=== PATIENT | male | born 1955 | race Caucasian/White ===

== ENCOUNTER 2018-03-28 17:28 | Emergency (ER) | payer OTHER, SELFPAY ==
[2018-03-28 17:34] VITALS: BP 144/77; PULSE 85; RESP 20; TEMP 37.8; O2SAT 97; BMI 30.5
--- NOTE | 2018-03-28 17:58 | PC.NURSE ---
PT C/O MID BACK PAIN SINCE LAST NIGHT AT APPROX 0030. STATES INCREASES WITH SITTING/LYING DOWN, DECREASES WITH MOVEMENT. ALSO C/O ACHING JOINTS AND HEAD CONGESTION.
--- NOTE | 2018-03-28 18:13 | ED_ITS ---
HPI - Back Pain/Injury <Yaz Murguia PA-C - Last Filed: 03/28/18 22:20> General Chief Complaint: Back Pain/Injury Stated Complaint: BACK PAIN Time Seen by Provider: 03/28/18 18:02 Source: patient Mode of arrival: ambulatory Limitations: no limitations History of Present Illness HPI Narrative: This 62-year-old male was feeling normal until yesterday when he had onset of feeling chilled and feverish with generalized joint pains and back pain. He states that he has continued to feel chilled but has not had known fever at home. He woke with more intense back pain today, which he states is focus mainly throughout his low back, not in 1 area. He states that can actually feel a little bit better to stretch the back out except for moving into a lying position. He does not have any pain in the upper back or neck. He states that he also has persistent joint pain in his hands and knees most, but also noticing in his elbows a little bit. He denies any history of recent illness or exposures, but states he has had some cough and his throat is a little bit hoarse today. He states he has a very slight headache, which he thinks could be from coughing, denies vision change, jaw claudication, or n/v. He denies chest pain, wheeze, or dyspnea. He denies any new abdominal pain or radiation of the back pain. He denies any exacerbating features for the back pain and tried ibuprofen at home without relief as well. He denies any bowel or bladder dysfunction or changes, denies any weakness or paresthesia in the extremities or other new complaints. Related Data Previous Rx's Medication Instructions Recorded cyclobenzaprine 10 mg PO Q8H PRN #14 tab 03/28/18 methylprednisolone [Medrol (Chau)] See Label Instructions PO PER PKG 03/28/18 DIR #21 each oxycodone-acetaminophen [Percocet] 1 tab PO Q4H PRN #10 tab 03/28/18 Allergies Allergy/AdvReac Type Severity Reaction Status Date / Time No Known Drug Allergies Allergy Verified 03/28/18 17:39 Review of Systems <Yaz Murguia PA-C - Last Filed: 03/28/18 22:20> Review of Systems All systems reviewed & are unremarkable except as noted in HPI and below Exam <JEFFREY Alanis Last Filed: 03/28/18 22:20> Narrative Exam Narrative: GENERAL APPEARANCE: Patient sitting comfortably in chair, in no distress. HEENT: PERRL, EOMI, normal oropharynx, no sinus TTP NECK: Supple LUNGS: Clear to auscultation bilaterally, no cough on exam. HEART: Rate and rhythm regular without murmur, normal S1 and S2, no S3 or S4. ABDOMEN: Soft, NT, ND, + BS x 4 quadrants NEUROLOGIC: Alert and oriented, normal speech, gait and coordination. DTRs 2+ throughout MUSCULOSKELETAL: Full Csp AROM without point tenderness. No point tenderness over the thoracic spine. Moderate tenderness throughout the lumbar spine and paraspinal lumbar musculature. He has full ROM of the trunk without tenderness but will not attempt to move to supine position secondary to tenderness. He has moderate tenderness over both ankles. There is no effusion or range of motion deficit. No tenderness over the knees or hips. He has full range of motion throughout the upper extremities, +metacarpal squeeze test,, somewhat tender over both wrists and elbows. No tenderness over the shoulders. No joint effusion noted DERM: No exanthem EXTREMITIES: No edema, no calf tenderness Initial Vital Signs Initial Vital Signs: Vital Signs Temperature 100.1 F H 03/28/18 17:34 Pulse Rate 85 03/28/18 17:34 Respiratory Rate 20 03/28/18 17:34 Blood Pressure 144/77 H 03/28/18 17:34 Pulse Oximetry 97 03/28/18 17:34 <Rudy Trotter DO - Last Filed: 03/28/18 22:22> Initial Vital Signs Initial Vital Signs: Vital Signs Temperature 100.1 F H 03/28/18 17:34 Pulse Rate 85 03/28/18 17:34 Respiratory Rate 20 03/28/18 17:34 Blood Pressure 144/77 H 03/28/18 17:34 Pulse Oximetry 97 03/28/18 17:34 Course <Yaz Murguia PA-C - Last Filed: 03/28/18 22:20> Hospital Course: I reviewed patient's findings with Dr. Trotter who agreed with workup and plan. Source of patient's low back and joint pain is not clear, occult infection or abcess is unlikely from his workup. Patient was resting comfortably at the time of discharge. We decided to try a course of steroids given the polyarthralgia. He was also given some endocet and muscle relaxants, which he has used for short times in the past and helpful. Advised not to drive. He agreed to return immediately if acutely worsening or changed sx over the weekend , otherwise will f/u with PCP early next week to assess progress on steroids. Orders Ordered: ED Orders 03/28/18 18:25 XR chest 2V Stat XR lumbar spine 2-3V Stat 03/28/18 18:53 C-Reactive Protein Quant Stat Complete Blood Count AUTO DIFF Stat Comprehensive Metabolic Panel Stat Erythrocyte Sedimentation Rate Stat Lactate (Lactic Acid) Stat 03/28/18 19:03 MR lumbar spine w con Stat 03/28/18 19:37 CT lumbar spine w con Stat Discontinued Medications Cyclobenzaprine HCl (Flexeril 10 Mg Prepack) 1 bottle MISC SEEINSTR ONE Stop: 03/28/18 21:53 Last Admin: 03/28/18 22:06 Dose: 1 bottle Hydromorphone HCl (Dilaudid) 1 mg IV NOW ONE Stop: 03/28/18 20:35 Last Admin: 03/28/18 20:39 Dose: 1 mg Sodium Chloride (Normal Saline 0.9%) 500 mls @ 1,000 mls/hr IV BOLUS ONE Stop: 03/28/18 18:53 Last Infusion: 03/28/18 20:43 Dose: 0 mls/hr Admin: 03/28/18 19:42 Dose: 1,000 mls/hr Oxycodone/Acetaminophen (Percocet 5/325) 1 tab PO NOW ONE Stop: 03/28/18 18:25 Last Admin: 03/28/18 18:58 Dose: 1 tab Oxycodone/Acetaminophen (Endocet 5/325 Prepack) 1 bottle MISC SEEINSTR ONE Stop: 03/28/18 21:53 Last Admin: 03/28/18 22:06 Dose: 1 bottle Vital Signs - 8 hr 03/28/18 17:34 03/28/18 18:18 03/28/18 21:16 Temperature 100.1 F H 98.3 F Pulse Rate 85 69 Respiratory Rate 20 16 Blood Pressure 144/77 H Blood Pressure [Left Arm] 153/75 H Pulse Oximetry 97 100 03/28/18 22:16 Temperature Pulse Rate 66 Respiratory Rate 18 Blood Pressure Blood Pressure [Left Arm] 134/79 H Pulse Oximetry 96 <Rudy Trotter DO - Last Filed: 03/28/18 22:22> Orders Ordered: ED Orders 03/28/18 18:25 XR chest 2V Stat XR lumbar spine 2-3V Stat 03/28/18 18:53 C-Reactive Protein Quant Stat Complete Blood Count AUTO DIFF Stat Comprehensive Metabolic Panel Stat Erythrocyte Sedimentation Rate Stat Lactate (Lactic Acid) Stat 03/28/18 19:03 MR lumbar spine w con Stat 03/28/18 19:37 CT lumbar spine w con Stat Discontinued Medications Cyclobenzaprine HCl (Flexeril 10 Mg Prepack) 1 bottle MISC SEEINSTR ONE Stop: 03/28/18 21:53 Last Admin: 03/28/18 22:06 Dose: 1 bottle Hydromorphone HCl (Dilaudid) 1 mg IV NOW ONE Stop: 03/28/18 20:35 Last Admin: 03/28/18 20:39 Dose: 1 mg Sodium Chloride (Normal Saline 0.9%) 500 mls @ 1,000 mls/hr IV BOLUS ONE Stop: 03/28/18 18:53 Last Infusion: 03/28/18 20:43 Dose: 0 mls/hr Admin: 03/28/18 19:42 Dose: 1,000 mls/hr Oxycodone/Acetaminophen (Percocet 5/325) 1 tab PO NOW ONE Stop: 03/28/18 18:25 Last Admin: 03/28/18 18:58 Dose: 1 tab Oxycodone/Acetaminophen (Endocet 5/325 Prepack) 1 bottle MISC SEEINSTR ONE Stop: 03/28/18 21:53 Last Admin: 03/28/18 22:06 Dose: 1 bottle Vital Signs - 8 hr 03/28/18 17:34 03/28/18 18:18 03/28/18 21:16 Temperature 100.1 F H 98.3 F Pulse Rate 85 69 Respiratory Rate 20 16 Blood Pressure 144/77 H Blood Pressure [Left Arm] 153/75 H Pulse Oximetry 97 100 03/28/18 22:16 Temperature Pulse Rate 66 Respiratory Rate 18 Blood Pressure Blood Pressure [Left Arm] 134/79 H Pulse Oximetry 96 MDM - Back Pain/Injury <Yaz Murguia PA-C - Last Filed: 03/28/18 22:20> Lab Data Attestation: I reviewed the patient's lab results. Result diagrams: 03/28/18 18:53 03/28/18 18:53 Lab Results 03/28/18 03/28/18 03/28/18 Range/Units 18:53 18:53 18:53 WBC (4.5-11.0) X10^3/uL RBC (4.5-5.9) X10^6/uL Hgb (13.5-17.5) g/dL Hct (41-53) % MCV (80-100) fL MCH (26-34) PG MCHC (30-36) % RDW (11.6-14.8) % Plt Count (150-400) X10^3/uL Neut % (Auto) (50-75) % Lymph % (Auto) (25-40) % Sandoval % (Auto) (3-14) % Eos % (Auto) (2-4) % Baso % (Auto) (0-2) % Neut # (Auto) (6102-2039) /uL ESR 20 H (0-15) MM/HR Sodium 134 L (137-145) mmol/L Potassium 4.2 (3.4-5.1) mmol/L Chloride 99.0 (98-107) mmol/L Carbon Dioxide 24.0 (22-32) mmol/L BUN 18.0 (9-20) mg/dL Creatinine 0.70 (0.66-1.25) mg/dL Estimated GFR > 60.0 (>60) mL/min BUN/Creatinine Ratio 25.7 H (6-22) Glucose 108 (80-110) mg/dL Lactate 0.7 (0.7-2.1) mmol/L Calcium 8.9 (8.4-10.2) mg/dL Total Bilirubin 1.0 (0.2-1.3) mg/dL AST 45 (17-59) IU/L ALT 65 (21-72) IU/L Alkaline Phosphatase 69 (38-126) U/L C-Reactive Protein 0.7 (<1.0) mg/dL Total Protein 8.1 (6.3-8.2) g/dL Albumin 4.3 (3.5-5.0) g/dL Globulin 3.8 (1.7-4.1) g/dL Albumin/Globulin Ratio 1.1 (1.0-2.8) // Range/Units 18:53 WBC 8.1 (4.5-11.0) X10^3/uL RBC 3.99 L (4.5-5.9) X10^6/uL Hgb 14.0 (13.5-17.5) g/dL Hct 39.3 L (41-53) % MCV 98.5 (80-100) fL MCH 35.1 H (26-34) PG MCHC 35.6 (30-36) % RDW 14.0 (11.6-14.8) % Plt Count 125 L (150-400) X10^3/uL Neut % (Auto) 66.4 (50-75) % Lymph % (Auto) 25.9 (25-40) % Sandoval % (Auto) 6.7 (3-14) % Eos % (Auto) 0.3 L (2-4) % Baso % (Auto) 0.7 (0-2) % Neut # (Auto) 5400 (4521-3301) /uL ESR (0-15) MM/HR Sodium (137-145) mmol/L Potassium (3.4-5.1) mmol/L Chloride (98-107) mmol/L Carbon Dioxide (22-32) mmol/L BUN (9-20) mg/dL Creatinine (0.66-1.25) mg/dL Estimated GFR (>60) mL/min BUN/Creatinine Ratio (6-22) Glucose (80-110) mg/dL Lactate (0.7-2.1) mmol/L Calcium (8.4-10.2) mg/dL Total Bilirubin (0.2-1.3) mg/dL AST (17-59) IU/L ALT (21-72) IU/L Alkaline Phosphatase (38-126) U/L C-Reactive Protein (<1.0) mg/dL Total Protein (6.3-8.2) g/dL Albumin (3.5-5.0) g/dL Globulin (1.7-4.1) g/dL Albumin/Globulin Ratio (1.0-2.8) Imaging Data spine: Radiologist's impression: View Report History [address] [address] XRay Report Signed Patient: SOCORRO ESTRADA MR#: [id number] : 1955 Acct:[id number] Age/Sex: 62 / M Date of Service: 03/28/18 Loc: ED Accession Number: [id number] Procedure: XR lumbar spine 2-3V Ordering Provider: Yaz Murguia P.A-C PROCEDURE: XR LUMBAR SPINE 2-3V INDICATIONS: pain TECHNIQUE: 3 views of the lumbar spine were acquired. COMPARISON: None. FINDINGS: Bones: 5 [id number] vertebrae are present. There is normal bony alignment. No vertebral body compression fractures. No suspicious bony lesions. Soft tissues: Overlying bowel gas pattern is normal. No suspicious soft tissue calcifications. IMPRESSION: Mild to moderate degenerative disc disease and facet osteoarthritis as seen at L4-5 and L5-S1, without subluxation or evidence of compression fracture. Dictated by: Jonathan Castro M.D. on 03/28/2018 at 18:58 Approved by: Jonathan Castro M.D. on 03/28/2018 at 18:58 Chest x-ray: Radiologist's impression: View Report History [address] [address] XRay Report Signed Patient: SOCORRO ESTRADA MR#: [id number] : 1955 Acct:[id number] Age/Sex: 62 / M Date of Service: 03/28/18 Loc: ED Accession Number: [id number] Procedure: XR chest 2V Ordering Provider: Yaz Murguia P.A-C PROCEDURE: XR CHEST 2V INDICATIONS: cough, thoracic pain TECHNIQUE: 2 views of the chest were acquired. COMPARISON: None. FINDINGS: Surgical changes and devices: None. Lungs and pleura: No pleural effusions or pneumothorax. Lungs are clear. Mediastinum: Mediastinal contours are normal. Heart size is normal. Bones and chest wall: No suspicious bony abnormalities. Soft tissues appear unremarkable. IMPRESSION: Normal for age, source of current symptoms is not seen. Dictated by: Jonathan Castro M.D. on 03/28/2018 at 18:58 Approved by: Jonathan Castro M.D. on 03/28/2018 at 18:[address]: Radiologist's impression: View Report History [address] [address] [address] Scan Report Signed Patient: SOCORRO ESTRADA MR#: [id number] : 1955 Acct:[id number] Age/Sex: 62 / M Date of Service: 03/28/18 Loc: ED Accession Number: [id number] Procedure: CT lumbar spine w con Ordering Provider: Yaz Murguia P.A-C PROCEDURE: CT LUMBAR SPINE W CON INDICATIONS: pain, r/o infection/abcess TECHNIQUE: After the administration of intravenous Isovue contrast, 3 mm thick sections acquired through the levels of interest. Sagittal and coronal reformats were then constructed. For radiation dose reduction, the following was used: automated exposure control. COMPARISON: None. FINDINGS: Image quality: Excellent. Bones: No sign of acute trauma or discitis/osteomyelitis based on CT criteria. Soft tissues: No inflammation involving the paravertebral soft tissues. IMPRESSION: No evidence of discitis or osteomyelitis found, and no paravertebral inflammation is seen. Reportedly MR scanning has been scheduled also. Dictated by: Jonathan Castro M.D. on 03/28/2018 at 21:28 Approved by: Jonathan Castro M.D. on 03/28/2018 at 21:31 <Rudy Trotter DO - Last Filed: 03/28/18 22:22> Lab Data Lab Results 03/28/18 03/28/18 03/28/18 Range/Units 18:53 18:53 18:53 WBC (4.5-11.0) X10^3/uL RBC (4.5-5.9) X10^6/uL Hgb (13.5-17.5) g/dL Hct (41-53) % MCV (80-100) fL MCH (26-34) PG MCHC (30-36) % RDW (11.6-14.8) % Plt Count (150-400) X10^3/uL Neut % (Auto) (50-75) % Lymph % (Auto) (25-40) % Sandoval % (Auto) (3-14) % Eos % (Auto) (2-4) % Baso % (Auto) (0-2) % Neut # (Auto) (9027-4588) /uL ESR 20 H (0-15) MM/HR Sodium 134 L (137-145) mmol/L Potassium 4.2 (3.4-5.1) mmol/L Chloride 99.0 (98-107) mmol/L Carbon Dioxide 24.0 (22-32) mmol/L BUN 18.0 (9-20) mg/dL Creatinine 0.70 (0.66-1.25) mg/dL Estimated GFR > 60.0 (>60) mL/min BUN/Creatinine Ratio 25.7 H (6-22) Glucose 108 (80-110) mg/dL Lactate 0.7 (0.7-2.1) mmol/L Calcium 8.9 (8.4-10.2) mg/dL Total Bilirubin 1.0 (0.2-1.3) mg/dL AST 45 (17-59) IU/L ALT 65 (21-72) IU/L Alkaline Phosphatase 69 (38-126) U/L C-Reactive Protein 0.7 (<1.0) mg/dL Total Protein 8.1 (6.3-8.2) g/dL Albumin 4.3 (3.5-5.0) g/dL Globulin 3.8 (1.7-4.1) g/dL Albumin/Globulin Ratio 1.1 (1.0-2.8) 05/25/18 Range/Units 18:53 WBC 8.1 (4.5-11.0) X10^3/uL RBC 3.99 L (4.5-5.9) X10^6/uL Hgb 14.0 (13.5-17.5) g/dL Hct 39.3 L (41-53) % MCV 98.5 (80-100) fL MCH 35.1 H (26-34) PG MCHC 35.6 (30-36) % RDW 14.0 (11.6-14.8) % Plt Count 125 L (150-400) X10^3/uL Neut % (Auto) 66.4 (50-75) % Lymph % (Auto) 25.9 (25-40) % Sandoval % (Auto) 6.7 (3-14) % Eos % (Auto) 0.3 L (2-4) % Baso % (Auto) 0.7 (0-2) % Neut # (Auto) 5400 (9860-1628) /uL ESR (0-15) MM/HR Sodium (137-145) mmol/L Potassium (3.4-5.1) mmol/L Chloride (98-107) mmol/L Carbon Dioxide (22-32) mmol/L BUN (9-20) mg/dL Creatinine (0.66-1.25) mg/dL Estimated GFR (>60) mL/min BUN/Creatinine Ratio (6-22) Glucose (80-110) mg/dL Lactate (0.7-2.1) mmol/L Calcium (8.4-10.2) mg/dL Total Bilirubin (0.2-1.3) mg/dL AST (17-59) IU/L ALT (21-72) IU/L Alkaline Phosphatase (38-126) U/L C-Reactive Protein (<1.0) mg/dL Total Protein (6.3-8.2) g/dL Albumin (3.5-5.0) g/dL Globulin (1.7-4.1) g/dL Albumin/Globulin Ratio (1.0-2.8) Discharge Plan Departure Patient Disposition: Home, Self-Care Clinical Impression: Low back pain, Polyarthralgia Instructions: DI for Low Back Pain, DI for Arthralgia Activity Restrictions/Additional Instructions: You should return as we talked about if any acutely changed or worsening symptoms. As we discussed, the exact source of your back pain and joint pains is not clear today. You may have some type of inflammatory arthritis that is affecting your back and multiple joints, so it is reasonable to try the steroids that we talked about. You can pick these up at the pharmacy in the morning. I have given you a prescription for some pain medication and muscle relaxants to use as well if you need them since they have helped to in the past. Do not drive while taking these as they may make you sleepy. Be sure to follow up with your PCP 1st of next week to review your progress as you may need further workup and testing. It will be helpful for him to reassess you after you have been on the steroids for a few days to determine whether they are helpful Prescriptions: New methylprednisolone [Medrol (Chau)] 4 mg tablets,dose pack See Label Instructions PO PER PKG DIR Qty: 21 RF: 0 cyclobenzaprine 10 mg tablet 10 mg PO Q8H PRN (Reason: muscle spasm) Qty: 14 RF: 0 oxycodone-acetaminophen [Percocet] 5-325 mg tablet 1 tab PO Q4H PRN (Reason: pain) Qty: 10 RF: 0 Referrals: Sami Steward MD [Non-Staff] - <Rudy Trotter DO - Last Filed: 03/28/18 22:22> Cosign ED Attending Kirstyature Attestation: I was immediately available in the department for consultation. Documentation has been reviewed. I agree with assessment and plan.
[2018-03-28 18:18] VITALS: TEMP 36.8
--- NOTE | 2018-03-28 18:25 | DI.RAD.S_ITS ---
PROCEDURE: XR CHEST 2V INDICATIONS: cough, thoracic pain TECHNIQUE: 2 views of the chest were acquired. COMPARISON: None. FINDINGS: Surgical changes and devices: None. Lungs and pleura: No pleural effusions or pneumothorax. Lungs are clear. Mediastinum: Mediastinal contours are normal. Heart size is normal. Bones and chest wall: No suspicious bony abnormalities. Soft tissues appear unremarkable. IMPRESSION: Normal for age, source of current symptoms is not seen. Dictated by: Jonathan Castro M.D. on 03/28/2018 at 18:58 Approved by: Jonathan Castro M.D. on 03/28/2018 at 18:59
--- NOTE | 2018-03-28 18:25 | DI.RAD.S_ITS ---
PROCEDURE: XR LUMBAR SPINE 2-3V INDICATIONS: pain TECHNIQUE: 3 views of the lumbar spine were acquired. COMPARISON: None. FINDINGS: Bones: 5 [id number] vertebrae are present. There is normal bony alignment. No vertebral body compression fractures. No suspicious bony lesions. Soft tissues: Overlying bowel gas pattern is normal. No suspicious soft tissue calcifications. IMPRESSION: Mild to moderate degenerative disc disease and facet osteoarthritis as seen at L4-5 and L5-S1, without subluxation or evidence of compression fracture. Dictated by: Jonathan Castro M.D. on 03/28/2018 at 18:58 Approved by: Jonathan Castro M.D. on 03/28/2018 at 18:58
[2018-03-28] MEDS: OXYCODONE/ACETAMINOPHEN 5/325 TABLET 1 TAB PO (18:58)
[2018-03-28 19:12] LABS: Add Manual Diff / Slide Review NO; Basophils Percent Auto 0.7 % (0-2); Eosinophils Percent Auto 0.3 % (2-4); Hematocrit 39.3 % (41-53); Lymphocytes Percent Auto 25.9 % (25-40); Mean Corpuscular HGB Conc 35.6 % (30-36); Mean Corpuscular Hemoglobin 35.1 PG (26-34); Mean Corpuscular Volume 98.5 fL (80-100); Monocytes Percent Auto 6.7 % (3-14); Neutrophils Absolute Auto 5400 /uL (3000-5900); Neutrophils Percent Auto 66.4 % (50-75); Platelet Count 125 X10^3/uL (150-400); Red Blood Cell Count 3.99 X10^6/uL (4.5-5.9); White Blood Cell Count 8.1 X10^3/uL (4.5-11.0)
[2018-03-28 19:21] LABS: Lactate (Lactic Acid) 0.7 mmol/L (0.7-2.1)
[2018-03-28 19:25] LABS: Alanine Aminotransferase 65 IU/L (21-72); Albumin 4.3 g/dL (3.5-5.0); Albumin Globulin Ratio 1.1 (1.0-2.8); Alkaline Phosphatase 69 U/L (38-126); Aspartate Aminotransferase 45 IU/L (17-59); BUN Creatinine Ratio 25.7 (6-22); C-Reactive Protein Quant 0.7 mg/dL (<1.0); Calcium 8.9 mg/dL (8.4-10.2); Estimated Glomerular Filt Rate > 60.0 mL/min (>60); Globulin 3.8 g/dL (1.7-4.1); Glucose 108 mg/dL (80-110); HEMOLYSIS 41 (0-50); Potassium 4.2 mmol/L (3.4-5.1); Sodium 134 mmol/L (137-145); Total Protein 8.1 g/dL (6.3-8.2)
[2018-03-28 19:36] LABS: Erythrocyte Sedimentation Rate 20 MM/HR (0-15)
--- NOTE | 2018-03-28 19:37 | DI.CT.S_ITS ---
PROCEDURE: CT LUMBAR SPINE W CON INDICATIONS: pain, r/o infection/abcess TECHNIQUE: After the administration of intravenous Isovue contrast, 3 mm thick sections acquired through the levels of interest. Sagittal and coronal reformats were then constructed. For radiation dose reduction, the following was used: automated exposure control. COMPARISON: None. FINDINGS: Image quality: Excellent. Bones: No sign of acute trauma or discitis/osteomyelitis based on CT criteria. Soft tissues: No inflammation involving the paravertebral soft tissues. IMPRESSION: No evidence of discitis or osteomyelitis found, and no paravertebral inflammation is seen. Reportedly MR scanning has been scheduled also. Dictated by: Jonathan Castro M.D. on 03/28/2018 at 21:28 Approved by: Jonathan Castro M.D. on 03/28/2018 at 21:31
[2018-03-28] MEDS: SODIUM CHLORIDE 0.9% 500 ML 1000 ML IV (19:42)
[2018-03-28] MEDS: HYDROMORPHONE 0.5 MG INJ 1 MG IV (20:39)
[2018-03-28 21:16] VITALS: BP 153/75; PULSE 69; RESP 16; O2SAT 100
[2018-03-28] MEDS: OXYCODONE/APAP 5/325 PREPACK 1 BOTTLE MISC (22:06)
[2018-03-28] MEDS: CYCLOBENZAPRINE 10 MG PREPACK 1 BOTTLE MISC (22:06)
[2018-03-28 22:16] VITALS: BP 134/79; PULSE 66; RESP 18; O2SAT 96
== END 2018-03-28 22:36 | disposition home or self-care (01) ==
PROVIDERS: Emergency Provider Internal Medicine
DX: M54.5 Low back pain (principal); M25.50 Pain in unspecified joint
CPT/HCPCS: 36591; 71046; 72100; 72132; 80053; 83605; 85025; 85651; 86140; 96361; 96374; 99283; 99284; J1170; Q9967